=== PATIENT | male | born 1930 | race African-American/Black ===

== ENCOUNTER 2018-02-23 15:37 | Inpatient (IN) | payer MEDICARE, MEDICAID ==
[~2018-02-23] VITALS: Ht 180.3 cm; Wt 58.0 kg
[~2018-02-23 15:37] MED LIST: ACET-2247 PO; BISA10S PR; DSS100 PO; ENOX30DI5 SQ; LISI-661 PO; PANT40TA25 PO
[2018-02-23] MEDS ORDERED: FERSL PO (16:11)
[2018-02-23] MEDS ORDERED: AMIN30LI28 PO (16:11)
[2018-02-23] MEDS ORDERED: NACL1 PO (16:11)
[2018-02-23] MEDS ORDERED: TRAM50TA4 PO (16:11)
[2018-02-23] MEDS ORDERED: TAMS0.4C32 PO (16:11)
[2018-02-23] MEDS ORDERED: CIPR-278 PO (16:11)
[2018-02-23 16:41] LABS: BASOPHILS % (AUTO) 0.3 % (0.0-2.0); EOSINOPHILS % (AUTO) 0.5 % (1.0-6.0); HEMATOCRIT 23.8 % (41-53); HEMOGLOBIN 8.1 g/dL (13.5-17.5); LYMPHOCYTES # (AUTO) 0.7 K/uL (1.0-4.8); MEAN CORPUSCULAR HEMOGLOBIN 28.8 pg (26.0-34.0); MEAN CORPUSCULAR HGB CONC 33.8 G/dL (31.0-37.0); MEAN CORPUSCULAR VOLUME 85 fL (80-100); MONOCYTES # (AUTO) 0.9 K/uL (0.1-1.0); MONOCYTES % (AUTO) 13.5 % (2.0-9.0); NEUTROPHILS # (AUTO) 4.9 K/uL (1.8-7.7); NEUTROPHILS % (AUTO) 74.7 % (40.0-70.0); PLATELET COUNT (AUTO) 512 K/uL (150-450); RED CELL DISTRIBUTION WIDTH 15.1 % (11.5-14.5)
[2018-02-23 16:49] LABS: INR 0.9 (0.9-1.1); PROTHROMBIN TIME 9.6 SEC (9.4-11.6)
[2018-02-23 16:50] LABS: CALCIUM, TOTAL 9.1 mg/dL (8.8-10.5); CREATININE 1.95 mg/dL (0.60-1.30); POTASSIUM 4.4 mmol/L (3.5-5.1)
[2018-02-23 16:56] LABS: ALBUMIN 2.8 g/dL (3.4-5.0); BILIRUBIN,TOTAL 0.3 mg/dL (0.1-1.0); TOTAL PROTEIN, SERUM 7.6 g/dL (6.4-8.2)
[2018-02-23] MEDS ORDERED: ACETAMINOPHEN 325 MG TABLET PO PRN ×2 (17:30→23:00)
[2018-02-23] MEDS ORDERED: 0.9% SODIUM CHLORIDE 10 ML SYRINGE IVP PRN ×2 (17:30→23:00)
[2018-02-23] MEDS ORDERED: ONDANSETRON HCL 4 MG/2 ML VIAL IVP PRN ×2 (17:30→23:00)
[2018-02-23 20:05] VITALS: BP 146/73
[2018-02-23] MEDS ORDERED: BISACODYL 10 MG RECTAL RECTAL SUPPOSITORY PR PRN (23:00)
[2018-02-23] MEDS ORDERED: TraMADol HCL 50 MG TABLET PO PRN (23:00)
[2018-02-23 23:39] VITALS: BP 130/60
[2018-02-24] VITALS (11 sets, daily range): BP systolic 120–164; BP diastolic 54–82
[2018-02-24 06:26] LABS: BASOPHILS % (AUTO) 0.5 % (0.0-2.0); HEMATOCRIT 21.6 % (41-53); HEMOGLOBIN 7.3 g/dL (13.5-17.5); LYMPHOCYTES # (AUTO) 1.2 K/uL (1.0-4.8); LYMPHOCYTES % (AUTO) 18.8 % (22.0-44.0); MEAN CORPUSCULAR VOLUME 85 fL (80-100); MONOCYTES # (AUTO) 1.1 K/uL (0.1-1.0); NEUTROPHILS % (AUTO) 61.7 % (40.0-70.0); PLATELET COUNT (AUTO) 464 K/uL (150-450); RED BLOOD CELL COUNT(AUTO) 2.53 MIL/uL (4.50-5.90); RED CELL DISTRIBUTION WIDTH 15.1 % (11.5-14.5)
[2018-02-24 06:51] LABS: ALBUMIN 2.3 g/dL (3.4-5.0); BILIRUBIN,TOTAL 0.3 mg/dL (0.1-1.0); CALCIUM, TOTAL 8.4 mg/dL (8.8-10.5); CHOL/HDL RATIO 2.8 (4.2-7.3); CREATININE 1.79 mg/dL (0.60-1.30); MAGNESIUM 2.2 mg/dL (1.80-2.40); POTASSIUM 4.7 mmol/L (3.5-5.1); TOTAL PROTEIN, SERUM 6.3 g/dL (6.4-8.2)
[2018-02-24 07:32] LABS: HEMOGLOBIN A1C 5.7 % (4.5-6.2)
[2018-02-24] MEDS: AMINO ACIDS/PROTEIN HYDROLYS 30 ML TUBE PO SCH ×2 (08:00→18:00)
[2018-02-24] MEDS ORDERED: ENOXAPARIN SODIUM 30 MG/0.3 ML PF SYRINGE SQ SCH (09:00)
[2018-02-24] MEDS: SODIUM CHLORIDE 0.45% 1,000 ML IV SCH ×3 (09:40→19:29)
[2018-02-24] MEDS: FERROUS SULFATE 300 MG/5 ML LIQUID UDCUP PO SCH ×2 (09:40→19:36)
[2018-02-24] MEDS: PANTOPRAZOLE SODIUM 40 MG DR TABLET PO SCH (09:40)
[2018-02-24] MEDS: SODIUM CHLORIDE 1 GM TABLET PO SCH (09:41)
[2018-02-24] MEDS: DOCUSATE SODIUM 100 MG CAPSULE PO SCH ×2 (09:41→20:05)
[2018-02-24] MEDS: CIPROFLOXACIN HCL 500 MG TABLET PO SCH ×2 (09:41→20:05)
[2018-02-24] MEDS ORDERED: PNEUMOCOCCAL VACCINE POLYVALENT 0.5 ML VIAL [PPSV23] IM ONE (14:45)
[2018-02-24] MEDS: TAMSULOSIN HCL 0.4 MG CAPSULE PO SCH (20:05)
[2018-02-25 04:02] VITALS: BP 141/74
[2018-02-25 06:18] LABS: BASOPHILS % (AUTO) 0.5 % (0.0-2.0); EOSINOPHILS % (AUTO) 1.1 % (1.0-6.0); HEMATOCRIT 25.5 % (41-53); HEMOGLOBIN 8.9 g/dL (13.5-17.5); LYMPHOCYTES # (AUTO) 0.9 K/uL (1.0-4.8); LYMPHOCYTES % (AUTO) 13.7 % (22.0-44.0); MEAN CORPUSCULAR HEMOGLOBIN 28.7 pg (26.0-34.0); MEAN CORPUSCULAR HGB CONC 34.8 G/dL (31.0-37.0); MEAN CORPUSCULAR VOLUME 83 fL (80-100); MONOCYTES # (AUTO) 1.2 K/uL (0.1-1.0); MONOCYTES % (AUTO) 17.6 % (2.0-9.0); NEUTROPHILS # (AUTO) 4.5 K/uL (1.8-7.7); NEUTROPHILS % (AUTO) 67.1 % (40.0-70.0); PLATELET COUNT (AUTO) 484 K/uL (150-450); RED BLOOD CELL COUNT(AUTO) 3.09 MIL/uL (4.50-5.90); RED CELL DISTRIBUTION WIDTH 16.6 % (11.5-14.5)
[2018-02-25] MEDS: SODIUM CHLORIDE 0.45% 1,000 ML IV SCH ×2 (06:28→16:30)
[2018-02-25 07:03] VITALS: BP 159/83
[2018-02-25] MEDS: AMINO ACIDS/PROTEIN HYDROLYS 30 ML TUBE PO SCH ×2 (08:00→18:00)
[2018-02-25] MEDS ORDERED: SODIUM CHLORIDE 0.9% 1,000 ML IV ONE (09:30)
[2018-02-25 11:05] VITALS: BP 150/63
[2018-02-25] MEDS ORDERED: LIDOCAINE HCL/PF 2% 5 ML VIAL INJ ONE (12:00)
[2018-02-25] MEDS ORDERED: PROPOFOL 1% 20 ML VIAL IVP ONE (12:00)
[2018-02-25] MEDS: SODIUM CHLORIDE 1 GM TABLET PO SCH (12:53)
[2018-02-25] MEDS: CIPROFLOXACIN HCL 500 MG TABLET PO SCH ×2 (12:54→20:10)
[2018-02-25] MEDS: DOCUSATE SODIUM 100 MG CAPSULE PO SCH ×2 (12:54→20:10)
[2018-02-25] MEDS: PANTOPRAZOLE SODIUM 40 MG DR TABLET PO SCH (12:54)
[2018-02-25] MEDS: FERROUS SULFATE 300 MG/5 ML LIQUID UDCUP PO SCH ×2 (12:54→17:39)
[2018-02-25 15:03] VITALS: BP 151/78
[2018-02-25 19:58] VITALS: BP 139/89
[2018-02-25] MEDS: TAMSULOSIN HCL 0.4 MG CAPSULE PO SCH (20:10)
[2018-02-26 00:19] VITALS: BP 129/70
[2018-02-26] MEDS: SODIUM CHLORIDE 0.45% 1,000 ML IV SCH ×2 (01:17→16:58)
[2018-02-26 04:47] VITALS: BP 134/82
[2018-02-26 08:19] VITALS: BP 143/78
[2018-02-26] MEDS: SODIUM CHLORIDE 1 GM TABLET PO SCH (08:33)
[2018-02-26] MEDS: CIPROFLOXACIN HCL 500 MG TABLET PO SCH ×2 (08:33→19:41)
[2018-02-26] MEDS: DOCUSATE SODIUM 100 MG CAPSULE PO SCH ×2 (08:33→19:41)
[2018-02-26] MEDS: FERROUS SULFATE 300 MG/5 ML LIQUID UDCUP PO SCH ×2 (08:33→17:00)
[2018-02-26] MEDS: PANTOPRAZOLE SODIUM 40 MG DR TABLET PO SCH (08:33)
[2018-02-26] MEDS: AMINO ACIDS/PROTEIN HYDROLYS 30 ML TUBE PO SCH (08:34)
[2018-02-26 11:00] VITALS: BP 150/79
[2018-02-26 16:40] VITALS: BP 147/91
[2018-02-26] MEDS: AmLODIPine BESYLATE 5 MG TABLET PO SCH (16:58)
[2018-02-26] MEDS: TAMSULOSIN HCL 0.4 MG CAPSULE PO SCH (19:41)
[2018-02-26 20:00] VITALS: BP 150/77
[2018-02-27] VITALS: BP 135/75
[2018-02-27] MEDS: SODIUM CHLORIDE 0.45% 1,000 ML IV SCH (00:44)
[2018-02-27 04:00] VITALS: BP 149/83
[2018-02-27 06:58] LABS: BASOPHILS % (AUTO) 0.6 % (0.0-2.0); EOSINOPHILS % (AUTO) 1.5 % (1.0-6.0); HEMATOCRIT 23.9 % (41-53); HEMOGLOBIN 8.2 g/dL (13.5-17.5); LYMPHOCYTES % (AUTO) 9.8 % (22.0-44.0); MEAN CORPUSCULAR HEMOGLOBIN 28.6 pg (26.0-34.0); MEAN CORPUSCULAR HGB CONC 34.4 G/dL (31.0-37.0); MEAN CORPUSCULAR VOLUME 83 fL (80-100); MONOCYTES # (AUTO) 1.5 K/uL (0.1-1.0); NEUTROPHILS # (AUTO) 7.3 K/uL (1.8-7.7); NEUTROPHILS % (AUTO) 73.1 % (40.0-70.0); PLATELET COUNT (AUTO) 435 K/uL (150-450); RED BLOOD CELL COUNT(AUTO) 2.88 MIL/uL (4.50-5.90); RED CELL DISTRIBUTION WIDTH 16.5 % (11.5-14.5)
[2018-02-27 07:04] LABS: CALCIUM, TOTAL 8.5 mg/dL (8.8-10.5); CREATININE 1.49 mg/dL (0.60-1.30)
[2018-02-27 08:12] VITALS: BP 150/78
[2018-02-27 08:13] VITALS: BP 152/74
[2018-02-27] MEDS: SODIUM CHLORIDE 1 GM TABLET PO SCH (08:23)
[2018-02-27] MEDS: PANTOPRAZOLE SODIUM 40 MG DR TABLET PO SCH (08:23)
[2018-02-27] MEDS: CIPROFLOXACIN HCL 500 MG TABLET PO SCH (08:23)
[2018-02-27] MEDS: FERROUS SULFATE 300 MG/5 ML LIQUID UDCUP PO SCH (08:23)
[2018-02-27] MEDS: AmLODIPine BESYLATE 5 MG TABLET PO SCH (08:23)
[2018-02-27] MEDS: DOCUSATE SODIUM 100 MG CAPSULE PO SCH (08:23)
[2018-02-27 11:42] VITALS: BP 143/74
[2018-02-27 16:49] VITALS: BP 141/68
== END 2018-02-27 17:50 | DRG 683 ==
LOC: EMS 15:38 → 6N 18:25
PROVIDERS: ADMIT Family Medicine; ATTEND Family Medicine
PROC: 30233N1 Transfusion of Nonautologous Red Blood Cells into Peripheral Vein, Percutaneous Approach (ICD-10-PCS; 2018-02-24)
PROC: 0DB58ZX Excision of Esophagus, Via Natural or Artificial Opening Endoscopic, Diagnostic (ICD-10-PCS; principal; 2018-02-25 09:30)
DX: N17.9 Acute kidney failure, unspecified (principal); E44.0 Moderate protein-calorie malnutrition; D64.9 Anemia, unspecified; Z68.1 Body mass index [BMI] 19.9 or less, adult; K44.9 Diaphragmatic hernia without obstruction or gangrene; I12.9 Hypertensive chronic kidney disease with stage 1 through stage 4 chronic kidney disease, or unspecified chronic kidney disease; N18.3 Chronic kidney disease, stage 3 (moderate); K21.0 Gastro-esophageal reflux disease with esophagitis; M19.90 Unspecified osteoarthritis, unspecified site; F17.210 Nicotine dependence, cigarettes, uncomplicated; Z79.899 Other long term (current) drug therapy
CPT/HCPCS: 36430; 82271; 83036; 83735; 86850; 86900; 86901; 86920; 87081; 88305; 88312; 97162; 97166; 97530; 99285; J1650; J2704; J3490; J7030; P9016

== ENCOUNTER 2018-03-12 19:16 | Inpatient (IN) | payer OTHER, MEDICARE, MEDICAID ==
[~2018-03-12] VITALS: Ht 167.6 cm; Wt 65.8 kg
[~2018-03-12 19:16] MED LIST changes: +AMIN30LI28 PO; +CIPR-278 PO; +FERSL PO; +NACL1 PO; +TAMS0.4C32 PO; +TRAM50TA4 PO
[2018-03-12] MEDS ORDERED: MULT-1279 PO (19:39)
[2018-03-12] MEDS ORDERED: NACL1 PO (19:39)
[2018-03-12] MEDS ORDERED: MOM30 PO (19:39)
[2018-03-12] MEDS ORDERED: AMIN30LI28 PO (19:39)
[2018-03-12] MEDS ORDERED: AMLO-511 PO (19:39)
[2018-03-12] MEDS ORDERED: ASCO500 PO (19:39)
[2018-03-12 20:08] LABS: BASOPHILS % (AUTO) 0.4 % (0.0-2.0); EOSINOPHILS % (AUTO) 0 % (1.0-6.0); HEMATOCRIT 34.1 % (41-53); HEMOGLOBIN 11.3 g/dL (13.5-17.5); LYMPHOCYTES # (AUTO) 0.8 K/uL (1.0-4.8); LYMPHOCYTES % (AUTO) 3.8 % (22.0-44.0); MEAN CORPUSCULAR HGB CONC 33.1 G/dL (31.0-37.0); MEAN CORPUSCULAR VOLUME 82 fL (80-100); MONOCYTES % (AUTO) 14.2 % (2.0-9.0); NEUTROPHILS # (AUTO) 17.3 K/uL (1.8-7.7); NEUTROPHILS % (AUTO) 81.6 % (40.0-70.0); PLATELET COUNT (AUTO) 543 K/uL (150-450); RED BLOOD CELL COUNT(AUTO) 4.17 MIL/uL (4.50-5.90); RED CELL DISTRIBUTION WIDTH 17.1 % (11.5-14.5)
[2018-03-12 20:21] LABS: PROTHROMBIN TIME 10.7 SEC (9.4-11.6)
[2018-03-12 20:22] LABS: ANION GAP 12 mmol/L (8-16); CALCIUM, TOTAL 8.4 mg/dL (8.8-10.5); CARBON DIOXIDE 23 mmol/L (22-29); CHLORIDE 99 mmol/L (98-107); CREATININE 3.17 mg/dL (0.60-1.30); GLOMERULAR FILTR. RATE CALC 23 mL/min (>60); GLUCOSE,RANDOM 143 mg/dL (70-110); POTASSIUM 3.6 mmol/L (3.5-5.1); SODIUM SERUM 134 mmol/L (136-145); UREA NITROGEN, BLOOD 47 mg/dL (7-18)
[2018-03-12 20:26] LABS: B-TYPE NATRIURETIC PEPTIDE 36 pg/mL (0-100)
[2018-03-12 20:28] LABS: PLATELET MORPHOLOGY COMMENT GIANT PLTS PRESENT
[2018-03-12] MEDS ORDERED: SODIUM CHLORIDE 0.9% 1,000 ML IV ONE ×2 (20:30→21:30)
[2018-03-12 20:50] LABS: ALANINE AMINOTRANSFERASE 9 U/L (12-78); ALBUMIN 2.1 g/dL (3.4-5.0); ALKALINE PHOSPHATASE 92 U/L (46-116); ASPARTATE AMINOTRANSFERASE 17 U/L (15-37); BILIRUBIN,TOTAL 0.4 mg/dL (0.1-1.0); CREATINE KINASE MB 0.9 ng/mL (0-5); CREATINE KINASE, TOTAL 157 U/L (39-308); LIPASE 27 U/L (73-393); TOTAL PROTEIN, SERUM 6.1 g/dL (6.4-8.2)
[2018-03-12 20:57] LABS: APPEARANCE,URINE CLOUDY (CLEAR); BILIRUBIN,URINE NEGATIVE (NEGATIVE); GLUCOSE, URINE (UA) NEGATIVE (NEGATIVE); KETONES,URINE NEGATIVE (NEGATIVE); LEUKOCYTE ESTERASE ,URINE TRACE (NEGATIVE); NITRATE,URINE NEGATIVE (NEGATIVE); OCCULT BLOOD,URINE SMALL (NEGATIVE); PH,URINE 5.5 (5.0-8.0); PROTEIN,URINE POS 1+ (NEGATIVE); UROBILINOGEN,URINE 0.2 mg/dL (<=1.0)
[2018-03-12 21:06] LABS: BACTERIA,URINE Few /HPF (None Seen); HYALINE CASTS, URINE 0-2 /LPF (None Seen)
[2018-03-12 21:07] LABS: COARSE GRANULAR CASTS,URINE 0-2 /LPF (None Seen); FINE GRANULAR CASTS,URINE 0-2 /LPF (None Seen)
[2018-03-12 21:08] LABS: LACTIC ACID 2.7 mmol/L (0.4-2.0)
[2018-03-12] MEDS ORDERED: PIPERACILLIN/TAZO 3.375 GM/D5W 50 ML IV ONE (22:45)
[2018-03-12] MEDS ORDERED: ONDANSETRON HCL 4 MG/2 ML VIAL IVP PRN (23:15)
[2018-03-12] MEDS ORDERED: 0.9% SODIUM CHLORIDE 10 ML SYRINGE IVP PRN (23:15)
[2018-03-12] MEDS ORDERED: ACETAMINOPHEN 325 MG TABLET PO PRN (23:15)
[2018-03-12] MEDS ORDERED: MetroNIDAZOLE 500 MG/NACL 100 ML IV ONE (23:30)
[2018-03-13 01:22] VITALS: BP 130/79
[2018-03-13 04:38] VITALS: BP 125/58
[2018-03-13 06:49] LABS: BASOPHILS % (AUTO) 0.3 % (0.0-2.0); EOSINOPHILS % (AUTO) 0 % (1.0-6.0); HEMATOCRIT 36.1 % (41-53); HEMOGLOBIN 11.9 g/dL (13.5-17.5); LYMPHOCYTES # (AUTO) 0.8 K/uL (1.0-4.8); LYMPHOCYTES % (AUTO) 3.4 % (22.0-44.0); MEAN CORPUSCULAR HEMOGLOBIN 27.1 pg (26.0-34.0); MEAN CORPUSCULAR VOLUME 82 fL (80-100); MONOCYTES # (AUTO) 3.6 K/uL (0.1-1.0); MONOCYTES % (AUTO) 15.1 % (2.0-9.0); NEUTROPHILS # (AUTO) 19.3 K/uL (1.8-7.7); NEUTROPHILS % (AUTO) 81.2 % (40.0-70.0); PLATELET COUNT (AUTO) 562 K/uL (150-450); RED BLOOD CELL COUNT(AUTO) 4.39 MIL/uL (4.50-5.90); RED CELL DISTRIBUTION WIDTH 16.8 % (11.5-14.5)
[2018-03-13 07:16] LABS: ALBUMIN 1.7 g/dL (3.4-5.0); BILIRUBIN,TOTAL 0.4 mg/dL (0.1-1.0); CREATININE 2.84 mg/dL (0.60-1.30); POTASSIUM 4.3 mmol/L (3.5-5.1); TOTAL PROTEIN, SERUM 5.6 g/dL (6.4-8.2)
[2018-03-13 07:18] LABS: PLATELET MORPHOLOGY COMMENT GIANT PLTS PRESENT
[2018-03-13 07:36] VITALS: BP 138/73
[2018-03-13] MEDS: AMINO ACIDS/PROTEIN HYDROLYS 30 ML TUBE PO SCH ×2 (10:00→20:34)
[2018-03-13] MEDS ORDERED: ACETAMINOPHEN 325 MG TABLET PO PRN (10:00)
[2018-03-13] MEDS: AmLODIPine BESYLATE 5 MG TABLET PO SCH (10:00)
[2018-03-13] MEDS: ASCORBIC ACID 500 MG TABLET PO SCH (10:00)
[2018-03-13] MEDS: MAGNESIUM HYDROXIDE SUSPENSION 30 ML UDCUP PO SCH (10:00)
[2018-03-13] MEDS: SODIUM CHLORIDE 1 GM TABLET PO SCH (10:00)
[2018-03-13] MEDS ORDERED: SODIUM CHLORIDE 0.9% 100 ML ONE (10:42)
[2018-03-13 11:45] VITALS: BP 127/88
[2018-03-13] MEDS: DEXTROSE 5%-0.45% SODIUM CHL 1,000 ML IV SCH ×2 (11:57→20:34)
[2018-03-13] MEDS: PIPERACILLIN/TAZO 3.375 GM/D5W 50 ML IV SCH ×3 (11:57→21:25)
[2018-03-13] MEDS: PANTOPRAZOLE SODIUM 40 MG DR TABLET PO SCH (11:59)
[2018-03-13 15:08] VITALS: BP 131/63
[2018-03-13] MEDS: MetroNIDAZOLE 500 MG TABLET PO SCH ×2 (16:56→20:26)
[2018-03-13 20:00] VITALS: BP 128/80
[2018-03-13] MEDS: TAMSULOSIN HCL 0.4 MG CAPSULE PO SCH (20:26)
[2018-03-14 00:58] VITALS: BP 111/72
[2018-03-14 04:48] VITALS: BP 134/70
[2018-03-14] MEDS: PIPERACILLIN/TAZO 3.375 GM/D5W 50 ML IV SCH ×4 (04:48→21:53)
[2018-03-14] MEDS: DEXTROSE 5%-0.45% SODIUM CHL 1,000 ML IV SCH ×2 (05:51→14:55)
[2018-03-14 06:46] LABS: HEMOGLOBIN 10.4 g/dL (13.5-17.5); MEAN CORPUSCULAR HEMOGLOBIN 26.6 pg (26.0-34.0); MEAN CORPUSCULAR HGB CONC 32.5 G/dL (31.0-37.0); MEAN CORPUSCULAR VOLUME 82 fL (80-100); PLATELET COUNT (AUTO) 530 K/uL (150-450); RED BLOOD CELL COUNT(AUTO) 3.91 MIL/uL (4.50-5.90); RED CELL DISTRIBUTION WIDTH 16.9 % (11.5-14.5)
[2018-03-14 07:11] VITALS: BP 122/73
[2018-03-14 07:25] LABS: ALBUMIN 1.5 g/dL (3.4-5.0); BILIRUBIN,TOTAL 0.3 mg/dL (0.1-1.0); CALCIUM, TOTAL 7.6 mg/dL (8.8-10.5); CREATININE 3.38 mg/dL (0.60-1.30); MAGNESIUM 1.8 mg/dL (1.80-2.40); POTASSIUM 3.8 mmol/L (3.5-5.1)
[2018-03-14] MEDS: MAGNESIUM HYDROXIDE SUSPENSION 30 ML UDCUP PO SCH (09:00)
[2018-03-14] MEDS: SODIUM CHLORIDE 1 GM TABLET PO SCH (09:02)
[2018-03-14] MEDS: MetroNIDAZOLE 500 MG TABLET PO SCH ×3 (09:02→21:52)
[2018-03-14] MEDS: AmLODIPine BESYLATE 5 MG TABLET PO SCH (09:02)
[2018-03-14] MEDS: ASCORBIC ACID 500 MG TABLET PO SCH (09:02)
[2018-03-14] MEDS: PANTOPRAZOLE SODIUM 40 MG DR TABLET PO SCH (09:02)
[2018-03-14 09:42] LABS: BAND NEUTROPHILS % (MANUAL) 64 % (0-5); LYMPHOCYTES % (MANUAL) 6 % (22-44); MONOCYTES % (MANUAL) 8 % (2-9); SEGMENTED NEUTROPHILS % 22 % (40-70)
[2018-03-14 09:44] LABS: PLATELET MORPHOLOGY COMMENT LARGE PLTS PRESENT
[2018-03-14 11:54] VITALS: BP 112/65
[2018-03-14 15:30] VITALS: BP 112/71
[2018-03-14] MEDS: AMINO ACIDS/PROTEIN HYDROLYS 30 ML TUBE PO SCH (18:37)
[2018-03-14 19:37] VITALS: BP 146/74
[2018-03-14] MEDS: TAMSULOSIN HCL 0.4 MG CAPSULE PO SCH (21:52)
[2018-03-14 23:33] LABS: C.DIFF GDH ANTIGEN, Stool Positive (Negative)
[2018-03-14 23:34] LABS: C.DIFF TOXINS A&B, Stool Negative (Negative)
[2018-03-15 00:17] VITALS: BP 119/72
[2018-03-15] MEDS: PIPERACILLIN/TAZO 3.375 GM/D5W 50 ML IV SCH ×2 (03:18→09:39)
[2018-03-15] MEDS: DEXTROSE 5%-0.45% SODIUM CHL 1,000 ML IV SCH ×3 (03:18→22:00)
[2018-03-15 04:49] VITALS: BP 123/69
[2018-03-15 06:36] LABS: HEMATOCRIT 31.8 % (41-53); HEMOGLOBIN 10.5 g/dL (13.5-17.5); MEAN CORPUSCULAR HEMOGLOBIN 26.8 pg (26.0-34.0); MEAN CORPUSCULAR VOLUME 81 fL (80-100); PLATELET COUNT (AUTO) 549 K/uL (150-450); RED BLOOD CELL COUNT(AUTO) 3.92 MIL/uL (4.50-5.90)
[2018-03-15 06:58] LABS: CALCIUM, TOTAL 7.8 mg/dL (8.8-10.5); CREATININE 3.39 mg/dL (0.60-1.30); POTASSIUM 3.6 mmol/L (3.5-5.1)
[2018-03-15] MEDS: AMINO ACIDS/PROTEIN HYDROLYS 30 ML TUBE PO SCH ×2 (08:10→18:08)
[2018-03-15] MEDS: PANTOPRAZOLE SODIUM 40 MG DR TABLET PO SCH (08:10)
[2018-03-15] MEDS: ASCORBIC ACID 500 MG TABLET PO SCH (08:10)
[2018-03-15] MEDS: MAGNESIUM HYDROXIDE SUSPENSION 30 ML UDCUP PO SCH (08:10)
[2018-03-15] MEDS: AmLODIPine BESYLATE 5 MG TABLET PO SCH (08:10)
[2018-03-15] MEDS: MetroNIDAZOLE 500 MG TABLET PO SCH ×3 (08:10→21:44)
[2018-03-15] MEDS: SODIUM CHLORIDE 1 GM TABLET PO SCH (08:10)
[2018-03-15 08:27] VITALS: BP 142/71
[2018-03-15 11:02] LABS: BAND NEUTROPHILS % (MANUAL) 26 % (0-5); LYMPHOCYTES % (MANUAL) 8 % (22-44); MONOCYTES % (MANUAL) 10 % (2-9); SEGMENTED NEUTROPHILS % 56 % (40-70)
[2018-03-15 11:26] VITALS: BP 130/68
[2018-03-15] MEDS: VANCOMYCIN HCL 250 MG/5 ML SOLUTION ORAL.SYG PO SCH ×3 (14:04→23:26)
[2018-03-15 15:47] VITALS: BP 112/66
[2018-03-15 19:06] VITALS: BP 129/73
[2018-03-15] MEDS: TAMSULOSIN HCL 0.4 MG CAPSULE PO SCH (21:44)
[2018-03-16] VITALS (7 sets, daily range): BP systolic 118–138; BP diastolic 66–85
[2018-03-16] MEDS: DEXTROSE 5%-0.45% SODIUM CHL 1,000 ML IV SCH ×2 (06:42→17:26)
[2018-03-16] MEDS: VANCOMYCIN HCL 250 MG/5 ML SOLUTION ORAL.SYG PO SCH ×4 (06:42→23:55)
[2018-03-16 06:52] LABS: BASOPHILS % (AUTO) 0.2 % (0.0-2.0); EOSINOPHILS % (AUTO) 0 % (1.0-6.0); HEMATOCRIT 30.4 % (41-53); HEMOGLOBIN 10.1 g/dL (13.5-17.5); LYMPHOCYTES # (AUTO) 0.6 K/uL (1.0-4.8); LYMPHOCYTES % (AUTO) 1.3 % (22.0-44.0); MEAN CORPUSCULAR HEMOGLOBIN 27.3 pg (26.0-34.0); MEAN CORPUSCULAR HGB CONC 33.3 G/dL (31.0-37.0); MEAN CORPUSCULAR VOLUME 82 fL (80-100); MONOCYTES # (AUTO) 1.8 K/uL (0.1-1.0); MONOCYTES % (AUTO) 4.3 % (2.0-9.0); NEUTROPHILS # (AUTO) 40.1 K/uL (1.8-7.7); PLATELET COUNT (AUTO) 557 K/uL (150-450); RED BLOOD CELL COUNT(AUTO) 3.71 MIL/uL (4.50-5.90); RED CELL DISTRIBUTION WIDTH 16.9 % (11.5-14.5)
[2018-03-16 06:57] LABS: CALCIUM, TOTAL 7.7 mg/dL (8.8-10.5); CREATININE 3.04 mg/dL (0.60-1.30)
[2018-03-16 08:29] LABS: NEUTROPHILS % (AUTO) 94.2 % (40.0-70.0); PLATELET MORPHOLOGY COMMENT LARGE PLTS PRESENT
[2018-03-16] MEDS: MAGNESIUM HYDROXIDE SUSPENSION 30 ML UDCUP PO SCH (09:00)
[2018-03-16] MEDS: PANTOPRAZOLE SODIUM 40 MG DR TABLET PO SCH (09:15)
[2018-03-16] MEDS: MetroNIDAZOLE 500 MG TABLET PO SCH ×3 (09:15→21:13)
[2018-03-16] MEDS: AmLODIPine BESYLATE 5 MG TABLET PO SCH (09:15)
[2018-03-16] MEDS: SODIUM CHLORIDE 1 GM TABLET PO SCH (09:16)
[2018-03-16] MEDS: ASCORBIC ACID 500 MG TABLET PO SCH (09:16)
[2018-03-16] MEDS: AMINO ACIDS/PROTEIN HYDROLYS 30 ML TUBE PO SCH ×2 (09:27→17:59)
[2018-03-16] MEDS: PIPERACILLIN SODIUM/TAZOBACTAM 2.25 GM in DEXTROSE 5%-WATER 50 ML IV SCH ×2 (13:07→21:13)
[2018-03-16] MEDS: TAMSULOSIN HCL 0.4 MG CAPSULE PO SCH (21:13)
[2018-03-17] MEDS: DEXTROSE 5%-0.45% SODIUM CHL 1,000 ML IV SCH ×2 (04:56→15:15)
[2018-03-17] MEDS: PIPERACILLIN SODIUM/TAZOBACTAM 2.25 GM in DEXTROSE 5%-WATER 50 ML IV SCH ×3 (04:56→20:16)
[2018-03-17 05:05] VITALS: BP 130/72
[2018-03-17] MEDS: VANCOMYCIN HCL 250 MG/5 ML SOLUTION ORAL.SYG PO SCH ×3 (06:23→18:00)
[2018-03-17 06:57] LABS: CREATININE 2.73 mg/dL (0.60-1.30); POTASSIUM 3.1 mmol/L (3.5-5.1)
[2018-03-17 07:00] LABS: HEMATOCRIT 30.8 % (41-53); HEMOGLOBIN 10.3 g/dL (13.5-17.5); MEAN CORPUSCULAR HEMOGLOBIN 27.1 pg (26.0-34.0); MEAN CORPUSCULAR HGB CONC 33.4 G/dL (31.0-37.0); MEAN CORPUSCULAR VOLUME 81 fL (80-100); PLATELET COUNT (AUTO) 609 K/uL (150-450); RED CELL DISTRIBUTION WIDTH 17.2 % (11.5-14.5)
[2018-03-17 07:03] VITALS: BP 135/74
[2018-03-17] MEDS: MAGNESIUM HYDROXIDE SUSPENSION 30 ML UDCUP PO SCH (09:00)
[2018-03-17 09:11] LABS: BAND NEUTROPHILS % (MANUAL) 7 % (0-5); LYMPHOCYTES % (MANUAL) 9 % (22-44); MONOCYTES % (MANUAL) 10 % (2-9); SEGMENTED NEUTROPHILS % 74 % (40-70)
[2018-03-17] MEDS: AMINO ACIDS/PROTEIN HYDROLYS 30 ML TUBE PO SCH ×2 (09:29→18:00)
[2018-03-17] MEDS: MetroNIDAZOLE 500 MG TABLET PO SCH ×3 (09:33→20:15)
[2018-03-17] MEDS: SODIUM CHLORIDE 1 GM TABLET PO SCH (09:33)
[2018-03-17] MEDS: AmLODIPine BESYLATE 5 MG TABLET PO SCH (09:33)
[2018-03-17] MEDS: PANTOPRAZOLE SODIUM 40 MG DR TABLET PO SCH (09:33)
[2018-03-17] MEDS: ASCORBIC ACID 500 MG TABLET PO SCH (09:33)
[2018-03-17 11:11] VITALS: BP 125/70
[2018-03-17] MEDS ORDERED: MAGNESIUM HYDROXIDE SUSPENSION 30 ML UDCUP PO PRN (13:00)
[2018-03-17] MEDS ORDERED: POTASSIUM CHLORIDE 20 MEQ ER TABLET PO PRN (13:00)
[2018-03-17 14:54] VITALS: BP 112/62
[2018-03-17 20:13] VITALS: BP 140/78
[2018-03-17] MEDS: TAMSULOSIN HCL 0.4 MG CAPSULE PO SCH (20:16)
[2018-03-17] MEDS: POTASSIUM CHL 10 MEQ/WATER 50 ML IV PRN (22:08)
[2018-03-18] MEDS: VANCOMYCIN HCL 250 MG/5 ML SOLUTION ORAL.SYG PO SCH ×3 (00:01→11:55)
[2018-03-18 00:40] VITALS: BP 129/79
[2018-03-18] MEDS: POTASSIUM CHL 10 MEQ/WATER 50 ML IV PRN ×2 (00:44→03:03)
[2018-03-18 05:04] VITALS: BP 118/73
[2018-03-18] MEDS: PIPERACILLIN SODIUM/TAZOBACTAM 2.25 GM in DEXTROSE 5%-WATER 50 ML IV SCH ×2 (05:31→11:57)
[2018-03-18] MEDS: DEXTROSE 5%-0.45% SODIUM CHL 1,000 ML IV SCH (05:31)
[2018-03-18 06:08] LABS: HEMATOCRIT 30.9 % (41-53); HEMOGLOBIN 10.5 g/dL (13.5-17.5); MEAN CORPUSCULAR HEMOGLOBIN 27.6 pg (26.0-34.0); MEAN CORPUSCULAR HGB CONC 34.1 G/dL (31.0-37.0); MEAN CORPUSCULAR VOLUME 81 fL (80-100); PLATELET COUNT (AUTO) 641 K/uL (150-450); RED BLOOD CELL COUNT(AUTO) 3.81 MIL/uL (4.50-5.90); RED CELL DISTRIBUTION WIDTH 17.1 % (11.5-14.5)
[2018-03-18 06:48] LABS: C.DIFF TOXINS A&B, Stool Negative (Negative)
[2018-03-18 06:50] LABS: C.DIFF GDH ANTIGEN, Stool Positive (Negative)
[2018-03-18 07:06] LABS: ALBUMIN 1.6 g/dL (3.4-5.0); BILIRUBIN,TOTAL 0.3 mg/dL (0.1-1.0); CREATININE 2.34 mg/dL (0.60-1.30); MAGNESIUM 1.8 mg/dL (1.80-2.40); POTASSIUM 3.8 mmol/L (3.5-5.1); TOTAL PROTEIN, SERUM 4.9 g/dL (6.4-8.2)
[2018-03-18 07:59] LABS: BAND NEUTROPHILS % (MANUAL) 3 % (0-5); LYMPHOCYTES % (MANUAL) 1 % (22-44); MONOCYTES % (MANUAL) 5 % (2-9); MYELOCYTES % 2 % (0-0); REACTIVE LYMPHOCYTES 1 % (0-0); SEGMENTED NEUTROPHILS % 88 % (40-70)
[2018-03-18 08:22] VITALS: BP 118/63
[2018-03-18] MEDS ORDERED: MULTIVITAMINS WITH MINERALS, THERAPEUTIC TABLET PO SCH (09:00)
[2018-03-18] MEDS: MetroNIDAZOLE 500 MG TABLET PO SCH ×2 (09:13→16:19)
[2018-03-18] MEDS: PANTOPRAZOLE SODIUM 40 MG DR TABLET PO SCH (09:13)
[2018-03-18] MEDS: ASCORBIC ACID 500 MG TABLET PO SCH (09:13)
[2018-03-18] MEDS: SODIUM CHLORIDE 1 GM TABLET PO SCH (09:13)
[2018-03-18] MEDS: AmLODIPine BESYLATE 5 MG TABLET PO SCH (09:13)
[2018-03-18] MEDS: AMINO ACIDS/PROTEIN HYDROLYS 30 ML TUBE PO SCH (09:13)
[2018-03-18 11:43] VITALS: BP 124/70
[2018-03-18] MEDS ORDERED: ONDANSETRON HCL 4 MG/2 ML VIAL IVP PRN (13:00)
[2018-03-18 15:59] VITALS: BP 154/82
== END 2018-03-18 17:20 | disposition short-term general hospital (02) | DRG 871 ==
LOC: EMS 19:19 → 5S 23:30
PROVIDERS: ADMIT Family Medicine; ATTEND Family Medicine
DX: A41.9 Sepsis, unspecified organism (principal); N17.0 Acute kidney failure with tubular necrosis; E87.2 Acidosis; A04.72 Enterocolitis due to Clostridium difficile, not specified as recurrent; E87.1 Hypo-osmolality and hyponatremia; N39.0 Urinary tract infection, site not specified; K52.9 Noninfective gastroenteritis and colitis, unspecified; N18.9 Chronic kidney disease, unspecified; D63.8 Anemia in other chronic diseases classified elsewhere; E83.51 Hypocalcemia; E86.0 Dehydration; E87.6 Hypokalemia; E88.09 Other disorders of plasma-protein metabolism, not elsewhere classified; F03.90 Unspecified dementia, unspecified severity, without behavioral disturbance, psychotic disturbance, mood disturbance, and anxiety; I12.9 Hypertensive chronic kidney disease with stage 1 through stage 4 chronic kidney disease, or unspecified chronic kidney disease; I25.10 Atherosclerotic heart disease of native coronary artery without angina pectoris; K21.0 Gastro-esophageal reflux disease with esophagitis; L98.429 Non-pressure chronic ulcer of back with unspecified severity; N40.0 Benign prostatic hyperplasia without lower urinary tract symptoms; R62.7 Adult failure to thrive; Z85.038 Personal history of other malignant neoplasm of large intestine; Z87.891 Personal history of nicotine dependence; Z78.9 Other specified health status
CPT/HCPCS: 74018; 74176; 82271; 83605; 83735; 84132; 84145; 86850; 86900; 86901; 87040; 87045; 87081; 87086; 87324; 87449; 93005; 93306; 96361; 96365; 97162; 97166; 97535; 99291; J2405; J2543; J3480; J3490; J7050; J7060